=== PATIENT | female | born 1990 ===

== ENCOUNTER 2024-08-12 07:00 | Day surgery (SDC) | payer OTHER ==
[2024-08-09 10:49] LABS: PH,URINE 7.5 (5.0-8.0); URINE APPEARANCE Clear; URINE BILIRRUBIN Negative (NEGATIVE); URINE BLOOD Negative; URINE COLOR Yellow; URINE GLUCOSE Negative (NEGATIVE); URINE KETONE Negative (NEGATIVE); URINE LEUKOCYTE Negative; URINE NITRATE Negative; URINE PROTEIN Negative (NEGATIVE); URINE UROBILINOGEN 0.2 E.U./dl
[2024-08-09 10:50] LABS: URINE BACTERIA 176.4 uL (0.0-1933); URINE EPITHELIAL CELLS 12.9 uL (0.0-38.8)
[2024-08-09 10:51] LABS: URINE RBC 0.7 uL (0.0-20.8); URINE WBC 1.3 uL (0.0-23.2)
[2024-08-09 11:00] LABS: HEMATOCRIT 39.3 % (36.0-45.00); HEMOGLOBIN 13.6 g/dL (12.0-15.00); MEAN CELL VOLUME 91.3 fL (80.00-100.00); MEAN CORPUSCULAR HEMOGLOBIN 31.6 pg (27.00-32.0); MEAN CORPUSCULAR HGB CONC 34.6 g/dl (32.0-36.0); PLATELET COUNT 287 K/uL (150-450); RED CELL DISTRIBUTION WIDTH 12.3 % (11.5-14.5)
[2024-08-09 11:25] LABS: INR 1.01
[2024-08-09 11:27] LABS: ALBUMIN 4.2 gm/dL (3.4-5.0); BILIRUBIN TOTAL 1.12 mg/dL (0.3-1.2); CALCIUM 9.7 mg/dL (8.5-10.1); CREATININE SERUM 0.81 mg/dL (0.55-1.02); GLOBULINA 3.4 G/DL (2.4-3.5); POTASSIUM 4.75 mEq/L (3.5-5.1); TOTAL PROTEIN 7.6 gm/dL (6.4-8.2)
[2024-08-09 11:44] LABS: RH POSITIVE
== END 2024-08-12 11:51 | disposition home or self-care (01) ==
LOC: CIR.AMB 07:00
PROVIDERS: ATTEND Obstetrics & Gynecology
DX: N83.9 Noninflammatory disorder of ovary, fallopian tube and broad ligament, unspecified (principal); Z53.09 Procedure and treatment not carried out because of other contraindication; N84.0 Polyp of corpus uteri

== ENCOUNTER 2024-09-01 07:29 | Inpatient (IN) | payer OTHER ==
[2024-08-29 14:04] LABS: RH POSITIVE
[2024-09-01] MEDS ORDERED: ONDANSETRON HCL 2 MG/ML VIAL IV PRN (19:30)
[2024-09-01] MEDS ORDERED: MORPHINE SULFATE 4 MG/ML CARTRIDGE IV PRN (19:30)
[2024-09-01] MEDS ORDERED: KETOROLAC TROMETHAMINE 30 MG VIAL IV ONE (19:30)
[2024-09-01] MEDS ORDERED: RINGERS SOLUTION,LACTATED 1,000 ML IV SCH (19:30)
[2024-09-01] MEDS ORDERED: CEFAZOLIN SODIUM 1,000 MG VIAL IV ONE (20:45)
[2024-09-01] MEDS ORDERED: SURGIFLO APPLICATOR 1 EACH APPL TOP ONE (20:45)
[2024-09-01] MEDS ORDERED: HEMOSTATIC MATRIX WITH THROMBIN KIT TOP ONE (20:45)
[2024-09-01] MEDS ORDERED: SIMETHICONE 125 MG CAPSULE PO SCH (21:00)
[2024-09-01] MEDS ORDERED: FAMOTIDINE/PF 20 MG/2 ML VIAL IV PUSH SCH (21:00)
[2024-09-01 23:25] LABS: HEMATOCRIT 32.7 % (36.0-45.00); HEMOGLOBIN 11.2 g/dL (12.0-15.00); MEAN CELL VOLUME 93.1 fL (80.00-100.00); MEAN CORPUSCULAR HEMOGLOBIN 31.9 pg (27.00-32.0); MEAN CORPUSCULAR HGB CONC 34.2 g/dl (32.0-36.0); PLATELET COUNT 148 K/uL (150-450); RED BLOOD COUNT 3.51 M/uL (4.00-6.00); RED CELL DISTRIBUTION WIDTH 12.1 % (11.5-14.5)
[2024-09-01 23:38] LABS: ALBUMIN 3.1 gm/dL (3.4-5.0); CALCIUM 8.8 mg/dL (8.5-10.1); CREATININE SERUM 0.61 mg/dL (0.55-1.02); GFR 110.98; POTASSIUM 4.29 mEq/L (3.5-5.1)
[2024-09-02] MEDS ORDERED: ACETAMINOPHEN 500 MG GEL..CAP PO SCH
[2024-09-02] MEDS ORDERED: KETOROLAC TROMETHAMINE 30 MG VIAL IM SCH
[2024-09-02] MEDS ORDERED: GABAPENTIN 300 MG CAPSULE PO SCH (01:00)
[2024-09-02] MEDS ORDERED: CEFAZOLIN SODIUM 1,000 MG VIAL IV SCH (01:00)
[2024-09-02 01:18] VITALS: BP 102/63; O2SAT 100
[2024-09-02 06:46] LABS: HEMATOCRIT 30.7 % (36.0-45.00); HEMOGLOBIN 10.7 g/dL (12.0-15.00); MEAN CELL VOLUME 91.9 fL (80.00-100.00); MEAN CORPUSCULAR HGB CONC 34.8 g/dl (32.0-36.0); PLATELET COUNT 239 K/uL (150-450); RED BLOOD COUNT 3.34 M/uL (4.00-6.00)
[2024-09-02 07:27] LABS: ALBUMIN 2.7 gm/dL (3.4-5.0); CALCIUM 8.4 mg/dL (8.5-10.1); CREATININE SERUM 0.65 mg/dL (0.55-1.02); GFR 103.13; PHOSPHOROUS 3.4 mg/dL (2.5-4.9); POTASSIUM 4.19 mEq/L (3.5-5.1)
[2024-09-02 07:51] VITALS: BP 107/51; O2SAT 99
[2024-09-02] MEDS ORDERED: ENOXAPARIN SODIUM 40 MG/0.4 ML SYRINGE SUBCUTANEO SCH (09:00)
== END 2024-09-02 14:33 | disposition home or self-care (01) | DRG 743 ==
LOC: CIR.AMB 07:29 → SURH 19:55 → SURG 19:55 → CIR.AMB 20:00 → SURG 20:33
PROVIDERS: ADMIT Obstetrics & Gynecology Gynecologic Oncology; ATTEND Obstetrics & Gynecology Gynecologic Oncology
PROC: 0UDB8ZZ Extraction of Endometrium, Via Natural or Artificial Opening Endoscopic (ICD-10-PCS; 2024-09-01)
PROC: 0UB04ZZ Excision of Right Ovary, Percutaneous Endoscopic Approach (ICD-10-PCS; principal; 2024-09-01 20:00)
DX: N84.0 Polyp of corpus uteri (principal); D27.0 Benign neoplasm of right ovary; Z20.822 Contact with and (suspected) exposure to COVID-19